=== PATIENT | male | born 1965 | race Caucasian/White ===

== ENCOUNTER 2018-02-20 15:49 | Emergency (ER) | payer SELFPAY ==
[~2018-02-20] VITALS: Ht 167.6 cm; Wt 64.0 kg
[2018-02-20 16:25] LABS: ALBUMIN 3.3 g/dL (3.4-5.0); ANION GAP 7 mmol/L (5-15); CALCIUM 8.6 mg/dL (8.5-10.1); CHLORIDE 111 mmol/L (98-107); CREATININE 1.09 mg/dL (0.7-1.3)
[2018-02-20 16:34] LABS: MEAN CORPUSCULAR HGB CONC 33.8 g/dL (33.2-36.2); MEAN CORPUSCULAR VOLUME 97.8 fL (81-97); MEAN PLATELET VOLUME 8.2 fL (7.4-10.4); PLATELET COUNT 264 x10^3/uL (130-400); RED BLOOD COUNT 4.21 x10^6/uL (4.38-5.82); RED CELL DISTRIBUTION WIDTH 12.4 % (9.4-14.8)
[2018-02-20 16:51] LABS: BASOPHILS # (AUTO) 0.03 x10^3/uL (0-0.1); BASOPHILS % (AUTO) 1 % (0-1); EOSINOPHILS # (AUTO) 0.34 x10^3/uL (0-0.4); EOSINOPHILS % (AUTO) 7 % (1-7); LYMPHOCYTES # (AUTO) 1.34 x10^3/uL (1-3.4); LYMPHOCYTES % (AUTO) 26 % (22-44); MONOCYTES # (AUTO) 0.57 x10^3/uL (0.2-0.8); MONOCYTES % (AUTO) 11 % (2-9); NEUTROPHILS # (AUTO) 2.92 x10^3/uL (1.8-6.8); NEUTROPHILS % (AUTO) 56 % (42-75)
[2018-02-20 16:52] LABS: MD SCAN
[2018-02-20 18:02] VITALS: BP 136/68
[2018-02-20 18:21] LABS: MICROSCOPIC AUTO
[2018-02-20 18:26] LABS: CULTURE INDICATED? YES
== END 2018-02-20 18:45 | disposition home or self-care (01) ==
LOC: ED 18:39
DX: N45.1 Epididymitis (principal); R10.32 Left lower quadrant pain
CPT/HCPCS: 36415; 76870; 80048; 81001; 82040; 85025; 87086; 93975; 99285

== ENCOUNTER 2018-12-29 06:56 | Emergency (ER) | payer MEDICAID ==
[~2018-12-29] VITALS: Ht 172.7 cm; Wt 65.3 kg
[~2018-12-29 06:56] MED LIST: ALBU0.63 NEB; BUPR-86 PO; LISI2.5T PO; ZOLP-413 PO
--- NOTE | 2018-12-29 07:13 | NUR ---
PATIENT ARRIVES COUGHING FREQUENTLY WITH TWO WEEK HISTORY OF COUGHING, BODY ACHES AND FEVERS. PLACED ON MONITOR, RAILS UP.
[2018-12-29] MEDS ORDERED: ALBUTEROL/IPRATROPIUM 2.5MG/0.5MG, 3 ML ONE (07:56)
[2018-12-29] MEDS: ALBUTEROL/IPRATROPIUM 2.5MG/0.5MG, 3 ML NPPB SCH ×2 (07:58→08:00)
--- NOTE | 2018-12-29 08:19 | NUR ---
PATIENT STATES FEELING BETTER. HE WANTS TO LEAVE. ASKING MD IF D/C OK
[2018-12-29 08:27] VITALS: BP 138/78
--- NOTE | 2018-12-29 08:28 | NUR ---
DISCHARGE TEACHING REVIEWED SHOWS UNDERSTANDING.
== END 2018-12-29 08:50 | disposition home or self-care (01) ==
LOC: ED 08:39
DX: J20.8 Acute bronchitis due to other specified organisms (principal); B96.89 Other specified bacterial agents as the cause of diseases classified elsewhere; I10 Essential (primary) hypertension; F17.210 Nicotine dependence, cigarettes, uncomplicated
CPT/HCPCS: 71046; 94640; 99283; J7512; J7620

== ENCOUNTER 2019-08-12 19:21 | Emergency (ER) | payer MEDICAID ==
[~2019-08-12] VITALS: Ht 182.9 cm; Wt 75.0 kg
[2019-08-12] MEDS ORDERED: ONDANSETRON 2MG/ML, 2ML ONE (19:34)
[2019-08-12] MEDS ORDERED: MORPHINE SULFATE 4 MG/ML, 1ML ONE (19:34)
[2019-08-12 19:48] VITALS: BP 163/118
--- NOTE | 2019-08-12 19:51 | NUR ---
MEDICATED PER EMAR
[2019-08-12 19:53] LABS: ANION GAP 5 mmol/L (5-15); CALCIUM 8.5 mg/dL (8.5-10.1); CHLORIDE 109 mmol/L (98-107)
[2019-08-12 19:54] LABS: BASOPHILS # (AUTO) 0.04 x10^3/uL (0-0.1); BASOPHILS % (AUTO) 1 % (0-1); EOSINOPHILS # (AUTO) 0.78 x10^3/uL (0-0.4); EOSINOPHILS % (AUTO) 12 % (1-7); LYMPHOCYTES # (AUTO) 2.12 x10^3/uL (1-3.4); LYMPHOCYTES % (AUTO) 32 % (22-44); MD NO; MEAN CORPUSCULAR HEMOGLOBIN 33.1 pg (27.5-34.5); MEAN CORPUSCULAR HGB CONC 33.3 g/dL (33.2-36.2); MEAN CORPUSCULAR VOLUME 99.6 fL (81-97); MONOCYTES # (AUTO) 0.61 x10^3/uL (0.2-0.8); MONOCYTES % (AUTO) 9 % (2-9); NEUTROPHILS % (AUTO) 47 % (42-75); PLATELET COUNT 278 x10^3/uL (130-400); RED BLOOD COUNT 4.67 x10^6/uL (4.38-5.82); RED CELL DISTRIBUTION WIDTH 13.4 % (9.4-14.8)
[2019-08-12] MEDS ORDERED: ONDANSETRON 2MG/ML, 2ML IVPush ONE (20:00)
[2019-08-12] MEDS ORDERED: SODIUM CHLORIDE FLUSH 10ML SYR IVF ONE (20:00)
[2019-08-12] MEDS ORDERED: MORPHINE SULFATE 4 MG/ML, 1ML IVPush PRN (20:00)
[2019-08-12] MEDS ORDERED: PLEASE ENTER HEIGHT AND WEIGHT MC SCH (20:00)
[2019-08-12] MEDS ORDERED: LORazepam 2 MG/ML, 1ML ONE (20:27)
[2019-08-12] MEDS ORDERED: LORazepam 2 MG/ML, 1ML IVPush ONE (20:30)
[2019-08-12] MEDS ORDERED: KETOROLAC 30 MG/1 ML ONE (21:25)
--- NOTE | 2019-08-12 21:28 | NUR ---
PAIN REMAINS 10/10 MEDICATED WITH TORADOL TAXI VOUCHER PROVIDED
[2019-08-12] MEDS ORDERED: KETOROLAC 30 MG/1 ML IM ONE (21:30)
== END 2019-08-12 21:51 | disposition home or self-care (01) ==
LOC: ED 20:04
DX: L03.116 Cellulitis of left lower limb (principal); I10 Essential (primary) hypertension; F17.210 Nicotine dependence, cigarettes, uncomplicated; F15.10 Other stimulant abuse, uncomplicated
CPT/HCPCS: 36415; 80048; 85025; 96372; 96374; 96375; 99283; J1885; J2060; J2270; J2405

== ENCOUNTER 2020-03-06 03:26 | Emergency (ER) | payer MEDICAID ==
[~2020-03-06] VITALS: Ht 172.7 cm; Wt 68.0 kg
[2020-03-06 03:33] VITALS: BP 153/100
[2020-03-06] MEDS ORDERED: IBUPROFEN 800 MG TABLET ONE (03:44)
[2020-03-06] MEDS ORDERED: IBUPROFEN 800 MG TABLET PO ONE (04:00)
== END 2020-03-06 04:00 | disposition home or self-care (01) ==
LOC: ED 03:45
DX: K08.89 Other specified disorders of teeth and supporting structures (principal); Z76.0 Encounter for issue of repeat prescription; I10 Essential (primary) hypertension; F17.210 Nicotine dependence, cigarettes, uncomplicated
CPT/HCPCS: 99283; 99406

== ENCOUNTER 2020-03-16 14:19 | Emergency (ER) | payer MEDICAID ==
[~2020-03-16] VITALS: Ht 172.7 cm; Wt 66.3 kg
[2020-03-16 14:27] VITALS: BP 155/108
--- NOTE | 2020-03-16 15:50 | NUR ---
POSTING SPECIALIST: PT TO ROOM FROM LOBBY AT THIS TIME.
--- NOTE | 2020-03-16 16:42 | NUR ---
Patient/Caregiver given discharge instructions and they have confirmed that they understand the instructions. Patient ambulatory with steady gait.
--- NOTE | 2020-03-16 17:00 | NUR ---
Patient/Caregiver given discharge instructions and they have confirmed that they understand the instructions. Patient ambulatory with steady gait.
== END 2020-03-16 17:01 | disposition home or self-care (01) ==
LOC: ED 16:38
DX: M19.042 Primary osteoarthritis, left hand (principal); M19.041 Primary osteoarthritis, right hand; K02.9 Dental caries, unspecified; M25.562 Pain in left knee; I10 Essential (primary) hypertension; V19.9XXA Pedal cyclist (driver) (passenger) injured in unspecified traffic accident, initial encounter; Y93.89 Activity, other specified; Y92.488 Other paved roadways as the place of occurrence of the external cause; Y99.8 Other external cause status
CPT/HCPCS: 99284

== ENCOUNTER 2020-03-29 10:58 | Inpatient (IN) | payer MEDICAID ==
[~2020-03-29] VITALS: Ht 172.7 cm; Wt 65.5 kg
--- NOTE | 2020-03-29 11:20 | NUR ---
THIS IS A 54 YO M W/ C/O LT ARM SWELLING AND TINGLING WELL SOB X3 DAYS. PT DENIES COUGH/FEVER/CHILLS/SORETHROAT/CP. PT CONNECTED TO ALL MONITORING, HYPERTENSIVE, OTHER VS WDL. RESP EVEN AND UNLABORED, NADN.
--- NOTE | 2020-03-29 12:13 | NUR ---
PT TO CT.
[2020-03-29 12:23] LABS: MEAN CORPUSCULAR HGB CONC 32.9 g/dL (33.2-36.2); MEAN CORPUSCULAR VOLUME 100.5 fL (81-97); PLATELET COUNT 223 x10^3/uL (130-400); RED BLOOD COUNT 4.66 x10^6/uL (4.38-5.82); RED CELL DISTRIBUTION WIDTH 12.8 % (9.4-14.8)
[2020-03-29 12:28] LABS: ALBUMIN 3.1 g/dL (3.4-5.0); ANION GAP 4 mmol/L (5-15); CALCIUM 8.1 mg/dL (8.5-10.1); CHLORIDE 111 mmol/L (98-107)
[2020-03-29 12:36] LABS: ALANINE AMINOTRANSFERASE 21 U/L (12-78); ALKALINE PHOSPHATASE 75 U/L (45-117); CREATININE 1.11 mg/dL (0.7-1.3); TOTAL PROTEIN 6.6 g/dL (6.4-8.2)
[2020-03-29 12:38] LABS: TROPONIN I 0.124 ng/mL (0.000-0.045)
[2020-03-29 12:45] LABS: BASOPHILS # (AUTO) 0.04 x10^3/uL (0-0.1); BASOPHILS % (AUTO) 1 % (0-1); EOSINOPHILS # (AUTO) 0.65 x10^3/uL (0-0.4); EOSINOPHILS % (AUTO) 13 % (1-7); LYMPHOCYTES # (AUTO) 1.25 x10^3/uL (1-3.4); LYMPHOCYTES % (AUTO) 25 % (22-44); MD SCAN; MONOCYTES # (AUTO) 0.52 x10^3/uL (0.2-0.8); MONOCYTES % (AUTO) 10 % (2-9); NEUTROPHILS # (AUTO) 2.53 x10^3/uL (1.8-6.8); NEUTROPHILS % (AUTO) 51 % (42-75)
[2020-03-29] MEDS ORDERED: NITROGLYCERIN OINT 2%, 1GM TP ONE ×2 (12:46→13:00)
[2020-03-29] MEDS ORDERED: ASPIRIN 81 MG TABLET CHEW ONE (12:47)
[2020-03-29 12:51] LABS: BILIRUBIN,TOTAL 0.3 mg/dL (0.2-1.0)
[2020-03-29] MEDS ORDERED: LISI-420 PO (12:58)
[2020-03-29] MEDS ORDERED: ASPIRIN 81 MG TABLET CHEW PO ONE (13:00)
--- NOTE | 2020-03-29 13:01 | NUR ---
PT UPDATED ON POC. STILL HYPERTENSIVE, OTHER VS WDL.
[2020-03-29] MEDS ORDERED: HEPARIN 25,000 UNITS/250ML PMX 250 ML ONE (13:27)
[2020-03-29] MEDS ORDERED: HEPARIN 5,000 UNITS/ML, 1ML ONE (13:27)
[2020-03-29] MEDS ORDERED: HEPARIN 5,000 UNITS/ML, 1ML IV ONE (13:30)
[2020-03-29] MEDS: HEPARIN 25,000 UNITS/250ML PMX 250 ML IV PRN (13:33)
--- NOTE | 2020-03-29 13:38 | NUR ---
ADMITTING PROVIDER AT BEDSIDE.
[2020-03-29] MEDS ORDERED: ONDANSETRON ODT 4 MG PO PRN (14:00)
[2020-03-29] MEDS ORDERED: ACETAMINOPHEN 325 MG TABLET PO PRN (14:00)
[2020-03-29] MEDS ORDERED: NITROGLYCERIN 0.4 MG BOTTLE (25 TABS) SL PRN (14:00)
[2020-03-29] MEDS ORDERED: ENALAPRILAT 1.25 MG/ML, 2ML IVPush PRN (14:00)
[2020-03-29] MEDS ORDERED: hydrALAzine 20 MG/ML, 1ML IVPush PRN (14:00)
[2020-03-29] MEDS ORDERED: POLYETHYLENE GLYCOL 17 GM PACKET PO PRN (14:00)
[2020-03-29] MEDS ORDERED: LABETALOL 5MG/ML, 20ML IVPush PRN (14:00)
[2020-03-29] MEDS ORDERED: ONDANSETRON 2MG/ML, 2ML IVPush PRN (14:00)
[2020-03-29] MEDS ORDERED: BISACODYL 10 MG SUPP PR PRN (14:00)
[2020-03-29] MEDS ORDERED: LISINOPRIL 20 MG TABLET ONE (14:33)
[2020-03-29] MEDS: LISINOPRIL 20 MG TABLET PO SCH (14:37)
--- NOTE | 2020-03-29 14:47 | NUR ---
2ND PIV STARTED. CARDIAC DIET TRAY DELIVERED TO PT. PT RESP EVEN AND UNLABORED, NADN. AWAITING ADMIT.
--- NOTE | 2020-03-29 14:59 | NUR ---
ATTEMPT TO CALL REPORT. RN UNAVAILABLE.
[2020-03-29 16:02] VITALS: BP 143/94
[2020-03-29 16:24] VITALS: BP 128/88
[2020-03-29] MEDS: MORPHINE SULFATE 4 MG/ML, 1ML IVPush PRN (17:19)
[2020-03-29 17:54] VITALS: BP 143/94
[2020-03-29 20:10] VITALS: BP 134/89
[2020-03-29] MEDS: HEPARIN 5,000 UNITS/ML, 1ML IV PRN (20:53)
[2020-03-29 22:18] LABS: MICROSCOPIC AUTO
[2020-03-29 22:27] LABS: AMPHETAMINE SCREEN, URINE Positive (Negative); BARBITURATE SCREEN, URINE Negative (Negative); BENZODIAZEPINE SCREEN, URINE Negative (Negative); CANNABINOID SCREEN, URINE Positive (Negative); COCAINE SCREEN, URINE Negative (Negative); METHADONE SCREEN, URINE Negative (Negative); OPIATE SCREEN, URINE Positive (Negative)
[2020-03-30 01:20] VITALS: BP 140/90
[2020-03-30] MEDS: MORPHINE SULFATE 4 MG/ML, 1ML IVPush PRN ×3 (03:27→23:06)
[2020-03-30 03:35] LABS: MEAN CORPUSCULAR HEMOGLOBIN 33.6 pg (27.5-34.5); MEAN CORPUSCULAR HGB CONC 33.7 g/dL (33.2-36.2); MEAN CORPUSCULAR VOLUME 99.5 fL (81-97); MEAN PLATELET VOLUME 8.5 fL (7.4-10.4); PLATELET COUNT 223 x10^3/uL (130-400); RED BLOOD COUNT 4.41 x10^6/uL (4.38-5.82); RED CELL DISTRIBUTION WIDTH 13.3 % (9.4-14.8)
[2020-03-30 03:39] LABS: ANION GAP 3 mmol/L (5-15); CALCIUM 7.6 mg/dL (8.5-10.1); CHLORIDE 109 mmol/L (98-107); CHOLESTEROL, TOTAL 148 mg/dL (140-239); CREATININE 1.18 mg/dL (0.7-1.3); TRIGLYCERIDES 147 mg/dL (50-200); VLDL CHOLESTEROL 29 mg/dL (0-25)
[2020-03-30 03:41] LABS: CHOL/HDL RATIO 3.1; HDL CHOL % 32 % (26-37); HDL CHOLESTEROL (DIRECT) 47 mg/dL (40-60); LDL CHOLESTEROL,CALCULATED 72 mg/dL (54-169); LDL/HDL RATIO 1.5 (0.5-3.0)
[2020-03-30 03:53] LABS: BASOPHILS # (AUTO) 0.11 x10^3/uL (0-0.1); BASOPHILS % (AUTO) 2 % (0-1); EOSINOPHILS # (AUTO) 0.64 x10^3/uL (0-0.4); EOSINOPHILS % (AUTO) 12 % (1-7); LYMPHOCYTES # (AUTO) 1.74 x10^3/uL (1-3.4); LYMPHOCYTES % (AUTO) 32 % (22-44); MD SCAN; MONOCYTES # (AUTO) 0.59 x10^3/uL (0.2-0.8); MONOCYTES % (AUTO) 11 % (2-9); NEUTROPHILS # (AUTO) 2.45 x10^3/uL (1.8-6.8); NEUTROPHILS % (AUTO) 44 % (42-75)
[2020-03-30] MEDS: HEPARIN 5,000 UNITS/ML, 1ML IV PRN (04:11)
[2020-03-30 07:49] VITALS: BP 166/109
[2020-03-30] MEDS ORDERED: KETOROLAC 30 MG/1 ML ONE (07:58)
[2020-03-30] MEDS ORDERED: KETOROLAC 30 MG/1 ML IVPush PRN (08:00)
[2020-03-30] MEDS: LISINOPRIL 20 MG TABLET PO SCH (08:50)
[2020-03-30] MEDS: ASPIRIN 325 MG TABLET EC PO SCH (08:50)
[2020-03-30] MEDS: SENNA/DOCUSATE TABLET PO SCH (08:52)
[2020-03-30] MEDS ORDERED: REGADENOSON 0.4 MG/5 ML SYRINGE ONE (11:06)
[2020-03-30] MEDS: HEPARIN 25,000 UNITS/250ML PMX 250 ML IV PRN (13:33)
[2020-03-30 14:55] VITALS: BP 154/104
[2020-03-30] MEDS: CEFTRIAXONE PMX 1GM/50ML 50 ML IV SCH (15:33)
[2020-03-30] MEDS ORDERED: COLCHICINE 0.6 MG CAPSULE PO ONE (17:30)
[2020-03-30] MEDS: METOPROLOL SUCCINATE 25 MG TAB.ER.24H PO SCH (17:40)
[2020-03-30 20:34] VITALS: BP 150/105
[2020-03-30] MEDS: COLCHICINE 0.6 MG CAPSULE PO SCH (20:42)
[2020-03-30] MEDS ORDERED: ATORVASTATIN 40 MG TABLET PO SCH (21:00)
[2020-03-30 23:07] VITALS: BP 156/112
[2020-03-31 00:21] VITALS: BP 152/98
[2020-03-31 05:48] VITALS: BP 147/98
[2020-03-31] MEDS: METOPROLOL SUCCINATE 25 MG TAB.ER.24H PO SCH (05:48)
[2020-03-31] MEDS: ASPIRIN 325 MG TABLET EC PO SCH (05:48)
[2020-03-31 07:49] VITALS: BP 158/104
[2020-03-31] MEDS: SENNA/DOCUSATE TABLET PO SCH (09:00)
[2020-03-31 10:44] VITALS: BP 137/86
[2020-03-31] MEDS: CEFTRIAXONE PMX 1GM/50ML 50 ML IV SCH (10:45)
[2020-03-31] MEDS: COLCHICINE 0.6 MG CAPSULE PO SCH (10:45)
[2020-03-31] MEDS: LISINOPRIL 20 MG TABLET PO SCH (10:45)
[2020-03-31] MEDS ORDERED: ALLO100T30 PO (10:52)
[2020-03-31] MEDS ORDERED: METO25TA91 PO (10:52)
[2020-03-31] MEDS ORDERED: LISI-420 PO (10:52)
[2020-03-31] MEDS ORDERED: COLC0.6C3 PO (10:52)
[2020-03-31] MEDS ORDERED: NAPR-850 PO (10:52)
[2020-03-31] MEDS ORDERED: ASPI81TA45 PO (10:52)
[2020-03-31] MEDS ORDERED: ATOR40TA78 PO (10:52)
[2020-03-31] MEDS ORDERED: CEFD300C37 PO (10:52)
== END 2020-03-31 13:11 | disposition home or self-care (01) | DRG 281 ==
LOC: ED 13:12 → EDIP 13:13 → ED 13:23 → 5SO 15:48 → DCLOUNGE 03-31 13:03
PROVIDERS: ADMIT Hospitalist; ATTEND Hospitalist
DX: I21.4 Non-ST elevation (NSTEMI) myocardial infarction (principal); I42.8 Other cardiomyopathies; I50.22 Chronic systolic (congestive) heart failure; N39.0 Urinary tract infection, site not specified; F15.10 Other stimulant abuse, uncomplicated; F17.210 Nicotine dependence, cigarettes, uncomplicated; F43.10 Post-traumatic stress disorder, unspecified; I11.0 Hypertensive heart disease with heart failure; I16.0 Hypertensive urgency; F19.10 Other psychoactive substance abuse, uncomplicated; K59.09 Other constipation; M10.9 Gout, unspecified; Z82.3 Family history of stroke; Z86.73 Personal history of transient ischemic attack (TIA), and cerebral infarction without residual deficits; Z91.14 Patient's other noncompliance with medication regimen
CPT/HCPCS: 36415; 70450; 71045; 78452; 80048; 80053; 80061; 80307; 81001; 83735; 83880; 84484; 85025; 85379; 85520; 87086; 93005; 93017; 93306; 93356; G0378; J0696; J1644; J1885; J2785; A9502; J2270

== ENCOUNTER 2020-07-01 13:33 | Emergency (ER) | payer MEDICAID ==
[~2020-07-01] VITALS: Ht 170.2 cm; Wt 68.8 kg
[~2020-07-01 13:33] MED LIST changes: +ALLO100T30 PO; +ASPI81TA45 PO; +ATOR40TA78 PO; +CEFD300C37 PO; +COLC0.6C3 PO; +LISI-420 PO; +METO25TA91 PO; +NAPR-850 PO
[2020-07-01 14:20] VITALS: BP 169/113
--- NOTE | 2020-07-01 14:40 | NUR ---
MED REFILL PA IN ROOM FOR EVAL ALSO C/O STD.
[2020-07-01] MEDS ORDERED: CEFTRIAXONE 250 MG ONE (14:48)
[2020-07-01] MEDS ORDERED: AZITHROMYCIN 500 MG TABLET ONE (14:48)
--- NOTE | 2020-07-01 14:56 | NUR ---
PT RELUCTANT TO GIVE UA BC NERVOUS ABOUT DRUG TEST. PA IN ROOM TO TELL PT NO DRUG TEST. GIVEN ABX PER OCT. CALL CHRISTIAN. GIVEN UA CUP.
[2020-07-01] MEDS ORDERED: AZITHROMYCIN 500 MG TABLET PO ONE (15:00)
[2020-07-01] MEDS ORDERED: CEFTRIAXONE 250 MG IM ONE (15:00)
== END 2020-07-01 15:40 | disposition home or self-care (01) ==
LOC: ED 14:47
DX: K02.9 Dental caries, unspecified (principal); Z76.0 Encounter for issue of repeat prescription; K08.89 Other specified disorders of teeth and supporting structures; N34.2 Other urethritis; F17.210 Nicotine dependence, cigarettes, uncomplicated
CPT/HCPCS: 87491; 87591; 96372; 99283; 99406; J0696

== ENCOUNTER 2021-04-09 19:47 | Emergency (ER) | payer MEDICAID ==
[~2021-04-09] VITALS: Ht 175.3 cm; Wt 66.4 kg
[~2021-04-09 19:47] MED LIST changes: -LISI-420 PO; +LISI20TA21 PO
[2021-04-09 19:56] VITALS: BP 160/112
--- NOTE | 2021-04-09 22:15 | NUR ---
Not in lobby when called for room.
--- NOTE | 2021-04-09 23:42 | NUR ---
Pt not in lobby when called for room. LWBS
== END 2021-04-09 23:45 | disposition home or self-care (01) ==
LOC: ED 23:00
DX: R06.02 Shortness of breath (principal); R42 Dizziness and giddiness; R68.83 Chills (without fever); Z53.21 Procedure and treatment not carried out due to patient leaving prior to being seen by health care provider
CPT/HCPCS: 93005